=== PATIENT | male | born 1965 | race Caucasian/White ===

== ENCOUNTER 2022-01-28 11:56 | Emergency (ER) | payer MEDICARE, MEDICAID, SELFPAY ==
[2022-01-28] VITALS (25 sets, daily range): BP systolic 99–167; BP diastolic 54–87; PULSE 75–92; RESP 11–22; TEMP 36.4–36.8; O2SAT 92–100; BMI 24.0
--- NOTE | 2022-01-28 12:52 | PC.NURSE ---
patient reports no dizzyness
[2022-01-28 12:55] LABS: Basophils Absolute Auto 100 /uL (0-100); Lymphocytes Absolute Auto 1600 /uL (1100-4500); Mean Corpuscular Hemoglobin 33.5 PG (26-34); Monocytes Absolute Auto 500 /uL (0-900); White Blood Cell Count 5.3 X10^3/uL (4.5-11.0)
[2022-01-28 12:58] LABS: Add Manual Diff / Slide Review NO; Basophils Percent Auto 1.2 % (0-2); Eosinophils Absolute Auto 900 /uL (0-450); Eosinophils Percent Auto 16.3 % (2-4); Lymphocytes Percent Auto 30.9 % (25-40); Mean Corpuscular HGB Conc 33.3 % (30-36); Mean Corpuscular Volume 100.6 fL (80-100); Monocytes Percent Auto 8.8 % (3-14); Neutrophils Absolute Auto 2200 /uL (1500-7000); Neutrophils Percent Auto 42.8 % (50-75); Platelet Count 174 X10^3/uL (150-400); Red Cell Distribution Width 19.6 % (11.6-14.8)
[2022-01-28 13:01] LABS: Alanine Aminotransferase 16 IU/L (<50); Albumin 2.3 g/dL (3.5-5.0); Albumin Globulin Ratio 0.6 (1.0-2.8); Alkaline Phosphatase 101 U/L (38-126); Aspartate Aminotransferase 43 IU/L (17-59); BUN Creatinine Ratio 15.5 (6-22); Bilirubin Total 0.5 mg/dL (0.2-1.3); Blood Urea Nitrogen 39 mg/dL (9-20); Calcium 7.7 mg/dL (8.4-10.2); Carbon Dioxide 31 mmol/L (22-32); Chloride 95 mmol/L (98-107); Estimated Glomerular Filt Rate 29 mL/min (>60); Globulin 3.6 g/dL (1.7-4.1); Glucose 94 mg/dL (70-100); HEMOLYSIS 46 (0-50); Hematocrit 18.1 % (41-53); Potassium 5.6 mmol/L (3.4-5.1); Sodium 129 mmol/L (137-145); Total Protein 5.9 g/dL (6.3-8.2)
[2022-01-28 13:27] LABS: COVID19 -Nasal RAPID Negative (Negative)
--- NOTE | 2022-01-28 13:55 | PC.NURSE ---
I was asked to place this patient on available transfer list. I was able to place this patient on the list of [facility], [facility], and [facility]. The patient was declined from the [facility] transfer list.
[2022-01-28] MEDS: ACETAMINOPHEN 325 MG TABLET 975 MG PO (15:03)
[2022-01-28] MEDS: LIDOCAINE PATCH 1 EACH ADH..PATCH TOP (15:03)
[2022-01-28] MEDS: OXYCODONE IR 5 MG TABLET PO (15:03)
--- NOTE | 2022-01-28 15:18 | PC.NURSE ---
This patient was placed on [facility] list at 1515 upon them returning our phone call.
--- NOTE | 2022-01-28 18:04 | ED_ITS ---
HPI - GI Bleed General Chief complaint: GI Bleed Stated complaint: Poss GI bleed Time Seen by Provider: 01/28/22 12:07 Source: patient and EMS Mode of arrival: EMS History of Present Illness HPI Narrative: This 56-year-old man with chronic kidney disease and relatively recent surgery comes to the ER today from [facility]. He had been there for 48 hours after spending a month at the hospital in [facility]. He had been recuperating from a fall December 24. On that day he had a complex left femur fracture and cervical spine fracture. He was sent to the rehab facility to help with his recovery. He is not borne weight in all that time. Today at the rehab facility it was noted that he had melena in his diaper. He was sent to us for further evaluation. His past medical history is remarkable for C-spine fracture, left femoral fracture status post surgery, end- stage renal disease on hemodialysis for at least 5 years, hypertension, history of C difficile with a negative toxin screen on January 10, 2022, diabetes, chronic alcohol use Medication list at the time of discharge include calcium carbonate, cholecalciferol, folic acid, hydroxyzine, loperamide, aspirin, atorvastatin, furosemide, metoprolol. Review of Systems Review of Systems Narrative: Complete review of systems is negative other than as noted above. Specifically, no shortness of breath, no chest pain, no abdominal pain, no fever. Patient History Social History Smoking Status: Former smoker Smoking Status: Former smoker tobacco type: cigarettes alcohol intake frequency: 0-2 drinks per day Substance Use Type: marijuana Exam Narrative Exam Narrative: GENERAL: Alert, cooperative and in no distress. HEAD: Atraumatic. Normocephalic. EYES: Sclera are clear without icterus. Extraocular movements are full. ENT: No rhinorrhea. Oropharynx is moist. Mouth exam is benign. NECK: He arrives in a rigid collar which I replaced while he is here. He seems to want to hold his head tilted to the right CARDIOVASCULAR: Normal rate and rhythm without murmur gallop or rub. RESPIRATORY: Clear to auscultation. Breath sounds equal bilaterally. No wheezes, rales, or rhonchi. GASTROINTESTINAL: Abdomen soft, non-tender, nondistended. Rectal: Diapers full of black stool which is guaiac positive. EXTREMITIES: The left thigh is mildly erythematous but soft and not swollen. He has good range of motion of his hip knee but touching the lateral aspect of his thigh causes great pain. BACK: Normal inspection, no CVA tenderness. NEURO: Nonfocal examination, normal speech, normal gait. SKIN: No rash or erythema of visible areas PSYCH: Normally oriented. Normal range of affect. Appropriate behavior Initial Vital Signs Initial Vital Signs: Vital Signs Pulse Rate 92 H 01/28/22 12:02 Respiratory Rate 20 01/28/22 12:02 Course Orders Ordered: ED Orders 01/28/22 12:08 Complete Blood Count AUTO DIFF Stat Comprehensive Metabolic Panel Stat 01/28/22 12:55 COVID19 -Nasal RAPID/Pre-Proc Stat 01/28/22 13:11 Type and Screen Stat transfuse [Packed Cells] Stat 01/28/22 13:15 EKG-12 Lead Stat 01/28/22 20:00 HH [Hemoglobin and Hematocrit] Stat Discontinued Medications Acetaminophen (Acetaminophen 325 Mg Tablet) 975 mg PO NOW ONE Stop: 01/28/22 14:59 Last Admin: 01/28/22 15:03 Dose: 975 mg Documented By: MARSHALL Lidocaine (Lidocaine Patch 1 Each Adh..Patch) 1 each TOP NOW ONE Stop: 01/28/22 14:59 Last Admin: 01/28/22 15:03 Dose: 1 each Documented By: MARSHALL Oxycodone HCl (Oxycodone Ir 5 Mg Tablet) 5 mg PO NOW ONE Stop: 01/28/22 14:59 Last Admin: 01/28/22 15:03 Dose: 5 mg Documented By: MARSHALL Vital Signs Vital signs: Vital Signs - 8 hr 01/28/22 12:15 01/28/22 12:02 01/28/22 12:04 Temperature 98.3 F Pulse Rate 92 H 92 H Respiratory Rate 18 20 Blood Pressure 133/67 133/67 Pulse Oximetry 100 Oxygen Delivery Method Room Air 01/28/22 12:04 01/28/22 12:04 01/28/22 12:30 Temperature Pulse Rate 91 H 90 Respiratory Rate 17 22 Blood Pressure 133/67 Pulse Oximetry 100 100 Oxygen Delivery Method 01/28/22 13:00 01/28/22 14:25 01/28/22 14:32 Temperature 98.2 F 97.9 F Pulse Rate 83 83 83 Respiratory Rate 15 18 16 Blood Pressure 150/77 H 155/87 H Pulse Oximetry 100 Oxygen Delivery Method 01/28/22 14:42 01/28/22 13:18 01/28/22 13:18 Temperature 97.8 F Pulse Rate 87 82 Respiratory Rate 16 17 Blood Pressure 166/79 H 155/73 H Pulse Oximetry 100 Oxygen Delivery Method 01/28/22 13:30 01/28/22 13:30 01/28/22 14:00 Temperature Pulse Rate 82 Respiratory Rate 17 Blood Pressure 141/76 H 150/77 H Pulse Oximetry 100 Oxygen Delivery Method 01/28/22 14:00 01/28/22 14:30 01/28/22 14:30 Temperature Pulse Rate 80 85 Respiratory Rate 14 13 Blood Pressure 167/81 H Pulse Oximetry 100 100 Oxygen Delivery Method 01/28/22 14:41 01/28/22 14:41 01/28/22 15:00 Temperature Pulse Rate 83 Respiratory Rate 13 Blood Pressure 155/87 H 166/79 H Pulse Oximetry 100 Oxygen Delivery Method 01/28/22 15:00 01/28/22 15:30 01/28/22 15:30 Temperature Pulse Rate 83 88 Respiratory Rate 11 L 12 Blood Pressure 130/69 Pulse Oximetry 100 92 Oxygen Delivery Method 01/28/22 16:03 01/28/22 16:06 01/28/22 16:00 Temperature 98.3 F 98.3 F Pulse Rate 81 86 Respiratory Rate 12 12 Blood Pressure 99/54 L 99/54 L 99/54 L Pulse Oximetry Oxygen Delivery Method 01/28/22 16:00 01/28/22 16:24 01/28/22 16:24 Temperature Pulse Rate 82 83 Respiratory Rate 11 L 12 Blood Pressure 100/55 L Pulse Oximetry 100 100 Oxygen Delivery Method 01/28/22 16:30 01/28/22 16:30 01/28/22 17:00 Temperature Pulse Rate 83 Respiratory Rate 11 L Blood Pressure 101/56 L 150/72 H Pulse Oximetry 100 Oxygen Delivery Method 01/28/22 17:00 01/28/22 17:30 01/28/22 17:30 Temperature Pulse Rate 82 78 Respiratory Rate 13 11 L Blood Pressure 139/70 Pulse Oximetry 94 99 Oxygen Delivery Method 01/28/22 18:00 01/28/22 18:00 Temperature Pulse Rate 79 Respiratory Rate 12 Blood Pressure 133/67 Pulse Oximetry 100 Oxygen Delivery Method MDM - GI Bleed Lab Data Result diagrams: 01/28/22 12:08 01/28/22 12:08 Labs: Lab Results 01/28/22 01/28/22 01/28/22 Range/Units 12:08 12:08 12:55 WBC 5.3 (4.5-11.0) X10^3/uL RBC 1.80 L (4.5-5.9) X10^6/uL Hgb 6.0 L* (13.5-17.5) g/dL Hct 18.1 L* (41-53) % MCV 100.6 H (80-100) fL MCH 33.5 (26-34) PG MCHC 33.3 (30-36) % RDW 19.6 H (11.6-14.8) % Plt Count 174 (150-400) X10^3/uL Neut % (Auto) 42.8 L (50-75) % Lymph % (Auto) 30.9 (25-40) % [place] % (Auto) 8.8 (3-14) % Eos % (Auto) 16.3 H (2-4) % Baso % (Auto) 1.2 (0-2) % Neut # (Auto) 2200 (5259-2945) /uL Lymph # (Auto) 1600 (2197-9671) /uL [place] # (Auto) 500 (0-900) /uL Eos # (Auto) 900 H (0-450) /uL Baso # (Auto) 100 (0-100) /uL Sodium 129 L (137-145) mmol/L Potassium 5.6 H (3.4-5.1) mmol/L Chloride 95 L (98-107) mmol/L Carbon Dioxide 31 (22-32) mmol/L BUN 39 H (9-20) mg/dL Creatinine 2.52 H (0.66-1.25) mg/dL Estimated GFR 29 L (>60) mL/min BUN/Creatinine Ratio 15.5 (6-22) Glucose 94 (70-100) mg/dL Calcium 7.7 L (8.4-10.2) mg/dL Total Bilirubin 0.5 (0.2-1.3) mg/dL AST 43 (17-59) IU/L ALT 16 (<50) IU/L Alkaline Phosphatase 101 (38-126) U/L Total Protein 5.9 L (6.3-8.2) g/dL Albumin 2.3 L (3.5-5.0) g/dL Globulin 3.6 (1.7-4.1) g/dL Albumin/Globulin Ratio 0.6 L (1.0-2.8) SARS-CoV-2 (PCR) Negative (Negative) Blood Type Antibody Screen Crossmatch 01/28/22 Range/Units 13:11 WBC (4.5-11.0) X10^3/uL RBC (4.5-5.9) X10^6/uL Hgb (13.5-17.5) g/dL Hct (41-53) % MCV (80-100) fL MCH (26-34) PG MCHC (30-36) % RDW (11.6-14.8) % Plt Count (150-400) X10^3/uL Neut % (Auto) (50-75) % Lymph % (Auto) (25-40) % [place] % (Auto) (3-14) % Eos % (Auto) (2-4) % Baso % (Auto) (0-2) % Neut # (Auto) (8044-3435) /uL Lymph # (Auto) (5334-5723) /uL [place] # (Auto) (0-900) /uL Eos # (Auto) (0-450) /uL Baso # (Auto) (0-100) /uL Sodium (137-145) mmol/L Potassium (3.4-5.1) mmol/L Chloride (98-107) mmol/L Carbon Dioxide (22-32) mmol/L BUN (9-20) mg/dL Creatinine (0.66-1.25) mg/dL Estimated GFR (>60) mL/min BUN/Creatinine Ratio (6-22) Glucose (70-100) mg/dL Calcium (8.4-10.2) mg/dL Total Bilirubin (0.2-1.3) mg/dL AST (17-59) IU/L ALT (<50) IU/L Alkaline Phosphatase (38-126) U/L Total Protein (6.3-8.2) g/dL Albumin (3.5-5.0) g/dL Globulin (1.7-4.1) g/dL Albumin/Globulin Ratio (1.0-2.8) SARS-CoV-2 (PCR) (Negative) Blood Type O Positive Antibody Screen Negative Crossmatch See Detail Point of Care Testing Stool Occult Blood Positive ECG Data Interpretation: EKG obtained at 1:11 p.m. on January 28 shows a sinus rhythm of 84 beats per minute. QTC is 446. No acute ST or T-wave changes MDM Narrative Medical decision making narrative: Patient has severe anemia though hemodynamically stable. No blood thinners. 2 units red cells transfused. I spoke with Dr. Sandeep Harrell from GI in [place] who agrees to consult on the patient when he is admitted. I also spoke with Dr. Blackburn from hospitalist service and telling him agrees to admit the patient. Discharge Plan Departure Patient Disposition: [facility] Clinical Impression: Melena, Upper gastrointestinal hemorrhage, End stage chronic kidney disease, Cervical spine fracture, Fracture of left femur Referrals: Ketty Rodney MD [Primary Care Provider] -
--- NOTE | 2022-01-28 20:04 | PC.NURSE ---
patient had large episode of melena before transport. approx 200 cc.
== END 2022-01-28 20:04 | disposition short-term general hospital (02) ==
PROVIDERS: Emergency Provider Family Medicine Addiction Medicine; PCP Internal Medicine Nephrology
DX: K92.2 Gastrointestinal hemorrhage, unspecified (principal); K92.1 Melena; N18.6 End stage renal disease; Z99.2 Dependence on renal dialysis; S12.9XXA Fracture of neck, unspecified, initial encounter; S72.92XA Unspecified fracture of left femur, initial encounter for closed fracture; Z20.822 Contact with and (suspected) exposure to COVID-19; I10 Essential (primary) hypertension
CPT/HCPCS: 36430; 80053; 82272; 85025; 86850; 86900; 86901; 87635; 93005; 93010; 99284; C9803; P9016